=== PATIENT | female | born 1960 | race Caucasian/White ===

== ENCOUNTER 2018-12-29 22:40 | Emergency (ER) | payer MEDICAID ==
[~2018-12-29] VITALS: Ht 149.9 cm; Wt 59.0 kg
[2018-12-30] MEDS ORDERED: IBUPROFEN 600MG TABLET PO ONE (01:30)
[2018-12-30] MEDS ORDERED: CYCLOBENZAPRINE 10MG TABLET PO ONE (03:30)
[2018-12-30 03:54] VITALS: BP 134/74
== END 2018-12-30 03:57 | disposition home or self-care (01) ==
LOC: ER 22:40
DX: R51 Headache (principal); M54.2 Cervicalgia; I11.9 Hypertensive heart disease without heart failure; E11.9 Type 2 diabetes mellitus without complications; V43.62XA Car passenger injured in collision with other type car in traffic accident, initial encounter; Y93.89 Activity, other specified; Y92.488 Other paved roadways as the place of occurrence of the external cause
CPT/HCPCS: 99284